=== PATIENT | male | born 1950 | race Caucasian/White ===

== ENCOUNTER 2022-01-05 10:02 | Observation (INO) | payer MEDICARE, SELFPAY ==
[2022-01-05] VITALS (9 sets, daily range): BP systolic 125–185; BP diastolic 81–97; PULSE 56–90; RESP 16–18; TEMP 36.5–36.9; O2SAT 93–100; BMI 23.2
--- NOTE | ~2022-01-05 | XR_ITS ---
EXAMINATION: XR chest 1V portable DATE: 01/05/2022 10:30 INDICATION: Dizziness. Syncope. TECHNIQUE: A single frontal view of the chest was obtained. COMPARISON: None. FINDINGS: The chest demonstrates clear lungs without pneumonia, pleural effusion, or pneumothorax. Th e heart size is normal. IMPRESSION: 1. No acute cardiopulmonary disease. Reviewed, dictated and finalized at location A. LY CENTERED SPECIALIST
--- NOTE | 2022-01-05 10:06 | ECG_ITS ---
Measurements Intervals [place] Rate: 54 P: 33 [place]: 162 QRS: -10 QRSD: 98 T: -21 QT: 422 QTc: 401 Interpretive Statements SINUS BRADYCARDIA LEFT VENTRICULAR HYPERTROPHY AND ST-T CHANGE MINIMAL Q WAVES- HIGH LATERAL LEADS BORDERLINE ST-T WAVE ABNORMALITY- INFERIOR LEADS BORDERLINE ECG Electronically Signed On 01-05-2022 15:13:45 P[employer]ICS PATTERNMAKER by Tony Correa D.O.
[2022-01-05 10:24] LABS: Basophils Absolute Auto 0.1 K/mm3 (0.0-0.1); Basophils Percent Auto 0.7 % (0.2-1.2); Eosinophils Absolute Auto 0.2 K/mm3 (0-0.3); Eosinophils Percent Auto 2.2 % (0-4.4); Hemoglobin 13.1 g/dL (14.0-18.0); Immature Granulocyte Absolute 0.04 K/mm3 (0.00-0.031); Immature Granulocyte Percent A 0.4 % (0-0.5); Lymphocytes Absolute Auto 3.05 K/mm3 (0.9-3.2); Lymphocytes Percent Auto 33.4 % (18.3-44.2); Mean Corpuscular HGB Conc 33.6 g/dl (32-36); Mean Corpuscular Hemoglobin 32.1 pg (26-34); Mean Corpuscular Volume 95.6 fl (80-100); Mean Platelet Volume 10.4 fl (7.4-10.4); Monocytes Percent Auto 10.5 % (2.6-8.5); Neutrophils Absolute Auto 4.8 K/mm3 (1.3-6.7); Neutrophils Percent Auto 52.8 % (45.5-73.1); Platelet Count Result 217 k/mm3 (150-375); Red Blood Count 4.08 M/mm3 (4.6-6.20); Red Cell Distribution Width 13.5 % (11.5-14.5); White Blood Count 9.1 K/mm3 (4.5-10.0)
--- NOTE | 2022-01-05 10:26 | ED.SYNCOPE ---
HPI - Syncope General Chief Complaint: Syncope Stated Complaint: syncopal, toothache Time Seen by Provider: 01/05/22 10:12 Source: patient, family and EMS Mode of arrival: EMS Limitations: no limitations History of Present Illness HPI narrative: Patient 71 years old white male brought to the emergency room by ambulance from discharge with his because of syncope. Patient was sitting in the bahai and started feeling bad, hot then blacked out for few minutes. Patient did not fall, nobody put him flat on the ground, was sitting all the time. Patient denies any headache, chest pain, shortness of breath, palpitation prior to syncope. Currently patient feeling much better except dry mouth. History of diabetes, hypertension, hyperlipidemia, heart attack 2 stent 2002 [facility], patient does not smoke or drink or uses drugs, currently patient on aspirin. Patient is fully vaccinated for COVID-19. Patient is full code. Patient been doing deep breathing exercises lately because of history of anxiety and panic attacks Related Data Home Medications Medication Instructions Recorded Confirmed glipizide 5 mg PO BID 01/05/22 01/05/22 losartan 100 mg PO DAILY 01/05/22 01/05/22 metformin 1,000 mg PO BID 01/05/22 01/05/22 simvastatin 10 mg PO DAILY 01/05/22 01/05/22 Allergies Allergy/AdvReac Type Severity Reaction Status Date / Time No Known Allergies Allergy Unknown Verified 08/30/03 08:41 Review of Systems Review of Systems: CONSTITUTIONAL: Denies fever, chills, or sweats. EYES: Denies visual changes, redness, or discharge. ENT: Denies rhinorrhea, congestion, sore throat, or otalgia. CARDIOVASCULAR: Denies chest pain, palpitations, or edema. RESPIRATORY: Denies cough or dyspnea. GASTROINTESTINAL: Denies abdominal pain, nausea, vomiting, or diarrhea. GENITOURINARY: Denies dysuria or hematuria. SKIN: Denies rash or itching. MUSCULOSKELETAL: Denies back pain, joint pain, or myalgia. NEUROLOGIC: Denies headache, numbness, or weakness. PSYCHIATRIC: Denies anxiety or depression. Exam Narrative: General appearance: Well-developed, well-nourished, hyperventilation, looks anxious does not look in pain Skin: Normal color Head: Normocephalic, nontraumatic Eyes: Clear conjunctiva ENT: Oropharynx normal, ears normal, nose normal, oral exam showed no sign of dental infection or dental caries Neck: Supple, nontender Chest and respiratory: Airway patent, no respiratory distress, no accessory muscle use Heart: Regular rate/rhythm Abdomen: Soft, nontender, no organomegaly, quiet bowel sounds Vascular: Normal peripheral pulses, normal capillary refill. Musculoskeletal: Normal range of motion, nontender back Neurologic: Alert and oriented ?3, MANAGER BENCH is normal as tested, no gross motor deficit Course Course Emergency Course: Improving Patient came to the emergency room from [place] with syncope. On arrival to the emergency room was hyperventilating, complaining of dry mouth. Patient symptoms resolved after Ativan and Zofran IV. Currently patient is asymptomatic, feeling much better. Work-up showed respiratory alkalosis which high likely secondary to hyperventilation syndrome. Patient had history of anxiety/depression and been doing deep breathing technique lately. Patient denying any stress or anxiety on arrival to the emergency room. Patient been complaining of right upper dental pain with chewing and biting for the last few days. No pain as long as he is not chewing or biting. Physical exam showed no findings for infection or abscess formation. Vital Signs Vital signs: Vital Signs Temperature 36.9 C 01/05/22 09:59 Pulse Rate 58 L 01/05/22 09:59 Respirato
[2022-01-05 10:33] LABS: Alanine Aminotransferase 39 U/L (4-50); Albumin Level 4.7 g/dL (3.5-5.1); Alkaline Phosphatase 56 U/L (38-126); Anion Gap 14 mmol/L (8-16); Aspartate Amino Transferase 34 U/L (17-59); Bilirubin,Total 0.5 mg/dL (0.2-1.3); Blood Urea Nitrogen 14 mg/dL (9-20); Carbon Dioxide 20 mmol/L (22-30); Chloride 103 mmol/L (98-107); Estimated CRCL calculation 60 ml/min; Estimated Glomerular Filt Rate > 60; Glucose 186 mg/dL (65-110); Sodium 137 mmol/L (137-145)
[2022-01-05 10:46] LABS: Troponin I 0.016 ng/mL (0.000-0.034)
[2022-01-05] MEDS: LORazepam INJ (*CRX) 2 MG/ML VIAL 1 MG IV PUSH (10:51)
[2022-01-05] MEDS: ONDANSETRON INJ 4 MG/2 ML VIAL IV PUSH (10:51)
[2022-01-05 11:12] LABS: Alveolar/Arterial O2 Gradient 23.2 mmHg; Base Excess ABG -2.1 mEq/l (+/-2.0); Fractional Inspired Oxygen 21 %; HCO3 ABG 18.4 mEq/l (22.0-26.0); Oxygen Content ABG 18.4 %vol (16.0-22.0); Oxygen Saturation ABG 98.3 % (95.0-100.0); PO2 ABG 100.2 mmHg (80.0-100.0); PO2 FiO2 Ratio Arterial Blood 4.77 %; Total Hemoglobin 13.4 g/dL (12.0-18.0)
[2022-01-05 11:15] LABS: pH ABG 7.541 (7.350-7.450)
[2022-01-05 11:16] LABS: INR 1.1; Prothrombin Time 13.5 Seconds (11.1-14.7)
[2022-01-05 11:16] LABS: Device ROOM AIR; Modified Allen's Test Pass; Site Drawn LEFT RADIAL
[2022-01-05 11:17] LABS: Partial Thromboplastin Time 23.5 SECONDS (22.3-36.8)
[2022-01-05 11:19] LABS: D Dimer 0.44 ug/mL (<0.48)
--- NOTE | 2022-01-05 12:02 | PM.IMHP ---
H&P: HPI History of Present Illness Date/Time: 01/05/22 12:02 Chief Complaint: Fainting spell Narrative: This pleasant 71-year-old gentleman with known and well controlled type 2 diabetes, hypertension, and hyperlipidemia was in his usual state of health this morning. Over the last few days he has had a toothache in the right jaw that is interfered with food intake. He has been taking Tylenol Arthritis regularly to ease the pain. He took Tylenol Arthritis on the morning of admission. His fasting blood sugar was 111 by his home glucometer. He prepared eggs for breakfast. He tolerated them well. He and his got dressed and left for muslim. As he walked in to muslim and set down he remarked to his that he was feeling nauseated. He started to feel very warm and his noted that he was perspiring and staring ahead and not responding to her. She summoned some help and a couple of min broad wheelchair helped him into it and wheeled him out to the lobby. He remembers some of that not all of it, saying that he felt as if he was fading in and out. During nighttime he had no abnormal movements and no incontinence and no injury. Once in the lobby he vomited several times. None of it was bloody. It was mainly the eggs that he had eaten earlier. He remembers 1 of the min telling him to ?stay with me ?as he felt very tired and wanted of lean his head forward and just go to sleep. EMS was summoned and they checked his blood sugar at the 160s. He was brought to the emergency department where his blood sugar was in the 180s. He because most of the transport to the emergency department and by the time he was in his margins room cot he was feeling almost at his baseline except for being very tired. He denied any postictal symptoms otherwise. He denied chest pain, shortness of breath, palpitations, edema, change in urine or stool, rash, abnormal bleeding, weakness, or numbness. He denied any visual changes other than the tunnel vision during his spell. When he was 33 years old he had a syncopal episode but his primary doctor told him he had hypokalemia and when that was corrected he experienced no further episodes. He was taking medications at the time. Review of Systems Review of Systems: All systems reviewed & are unremarkable except as noted in HPI and below PMFSH Past Medical History Medical History (Updated 01/05/22 @ 14:22 by Demetrio Garcia MD) Aortic valve stenosis, acquired Coronary artery disease Essential hypertension Hyperlipidemia Uncomplicated type 2 diabetes mellitus Surgical History Surgical History (Updated 01/05/22 @ 14:03 by Demetrio Garcia MD) Stented coronary artery Family History Family History (Updated 01/05/22 @ 14:07 by Demetrio Garcia MD) Father COPD (chronic obstructive pulmonary disease) Mother No problems noted. Social History Social History (Updated 01/05/22 @ 14:10 by Demetrio Garcia MD) Social History: Retired stock checkerer. Resides with (POA). Desires to be full code. Smoking packs per day: 2 Smoking cigarettes per day: 40.0 Years smoked: 25 Smoking pack-years: 50.00 Smoking status: Former smoker Tobacco type: cigarettes Smoking end date: 05/23/02 Alcohol intake: former Substance use: never Living arrangements: with family Additional living arrangements comments: Resides with spouse. Gender identity (if verbalized by the patient): Male Meds Home Medications and Allergies Home Medications Medication Instructions Recorded Confirmed Type glipizide 5 mg PO BID 01/05/22 01/05/22 History losartan 100 mg PO DAILY 01/05/22 01/05/22 History metformin 1,000 mg PO BID 01/05/22 01/05/22 History simvastatin 10 mg PO DAILY 01/05/22 01/05/22 History Allergies Allergy/AdvReac Type Severity Reaction Status Date / Time nitroglycerin AdvReac Hypotension Verified 01/05/22 11:58 Vital Signs Vital Signs - 24 hr
[2022-01-05 12:37] LABS: SARS-CoV-2 RNA PCR Negative
--- NOTE | 2022-01-05 12:45 | PC.NURSE ---
Pt is agreeable to admission. Hospitalist at bedside.
[2022-01-05 13:54] LABS: Troponin I < 0.012 ng/mL (0.000-0.034)
--- NOTE | 2022-01-05 15:10 | PC.NURSE ---
This patient, Herbie De Guzman, was admitted to 3 [facility] Surg Room 327-01. Patient/family oriented to hospital policies and general routines including ID bracelet, bed and alarms, visiting hours, pain management, procedures, bathroom and other care routines, personal items, smoking policy, room service/diet, and visiting hours. Report received from [facility]. Information on how to activate the Rapid Response Team has been discussed. Patient/Family are encouraged to report perceived risks to care and to ask questions if they do not understand what they are told or what they should do.
[2022-01-05 16:32] LABS: Troponin I < 0.012 ng/mL (0.000-0.034)
[2022-01-05 17:00] LABS: Glucose Point of Care 126 mg/dl (65-105)
[2022-01-05] MEDS: glipiZIDE 5 MG TABLET PO (17:28)
[2022-01-05] MEDS: metFORMIN HCL 500 MG TABLET 1000 MG PO (17:28)
[2022-01-05] MEDS: ENOXAPARIN 40 MG/0.4 ML SYRINGE SUB-Q (17:28)
[2022-01-05] MEDS: SIMVASTATIN 10 MG TABLET PO (20:58)
[2022-01-06] VITALS: PULSE 90
--- NOTE | 2022-01-06 | ECHO_ITS ---
Patient Info Name: Herbie De Guzman Age: 71 years : 1950 Gender: Male Ht: 73 in Wt: 178 lbs BSA: 2.04 m2 HR: 90 bpm BP: 161 / 91 mmHg Heart Rhythm: Sinus Rhythm Technical Quality: Fair Exam Date: 01/06/2022 9:16 AM Exam Location: [facility] Pulmonary Patient Status: Outpatient Admit Date: 01/05/2022 Staff Ordering Physician: Demetrio Garcia MD Java Developer With Security Clearance: Harmony Moore RDCS Attending Provider: Demetrio Garcia MD Referring Physician: Radha HOU; Exam Type: CA echo doppler color flow Study Info Indications - aortic stenosis, syncope Complete two-dimensional, color flow and Doppler transthoracic echocardiogram is performed. Summary 1. Complete two-dimensional, color flow and Doppler transthoracic echocardiogram is performed. 2. There is mild concentric increased left ventricular wall thickness. 3. Left ventricular systolic function is normal, estimated at 60-65%. 4. The left ventricular diastolic function is grade I diastolic dysfunction. 5. Left atrial chamber dimension is mildly enlarged. 6. There is mild aortic valve stenosis with a peak velocity of 300 cm/s, mean gradient of 19 mmHg, and aortic valve area of 1.3 cm2. 7. There is trace mitral valve regurgitation. Left Ventricle Left ventricular chamber dimension is normal. Left ventricular systolic function is normal, estimated at 60-65%. There is mild concentric increased left ventricular wall thickness. The left ventricular diastolic function is grade I diastolic dysfunction. Right Ventricle Right ventricular chamber dimension is normal. Left Atria Left atrial chamber dimension is mildly enlarged. Right Atria Right atrial chamber dimension is normal. Aortic Valve The aortic valve is trileaflet. There is moderate aortic valve sclerosis. There is mild aortic valve stenosis with a peak velocity of 300 cm/s, mean gradient of 19 mmHg, and aortic valve area of 1.3 cm2. Pulmonic Valve The pulmonic valve is not well visualized. Mitral Valve The mitral valve has normal leaflets. There is trace mitral valve regurgitation. Tricuspid Valve The tricuspid valve leaflets are normal. Pericardium/Pleural The pericardium appears normal. Aorta The aortic root size at the sinus of Valsalva is normal. Left Ventricular Outflow Tract Name Value Normal LVOT 2D LVOT Diameter 2.0 cm LVOT Doppler LVOT Peak Gradient 6 mmHg LVOT Mean Gradient 3 mmHg LVOT VTI 22 cm LVOT VTI/AV VTI Ratio 0.4 LVOT Stroke Volume 73 ml LVOT CO 5.5 l/min LVOT CI 2.7 l/min/m2 Pulmonic Valve Name Value Normal RVOT Doppler RVOT Peak Gradient 5 mmHg PV Do
[2022-01-06 04:00] VITALS: PULSE 90
[2022-01-06 06:00] VITALS: BP 161/91; PULSE 90; RESP 16; TEMP 36.4; O2SAT 96
--- NOTE | 2022-01-06 06:00 | ECG_ITS ---
Measurements Intervals [place] Rate: 68 P: 40 AR: 153 QRS: -13 QRSD: 99 T: -1 QT: 379 QTc: 404 Interpretive Statements SINUS RHYTHM LEFT VENTRICULAR HYPERTROPHY AND ST-T CHANGE BORDERLINE ST-T WAVE ABNORMALITY- INF/LAT LEADS BORDERLINE ECG Electronically Signed On 01-06-2022 13:36:50 BUS BOY by Tony Correa D.O.
[2022-01-06] MEDS: glipiZIDE 5 MG TABLET PO (06:17)
[2022-01-06 07:29] LABS: Hematocrit 39.6 % (42.0-52.0); Hemoglobin 13.2 g/dL (14.0-18.0); Immature Reticulocyte Fraction 11.1 % (3.0-15.9); Mean Corpuscular HGB Conc 33.3 g/dl (32-36); Mean Corpuscular Hemoglobin 32.1 pg (26-34); Mean Corpuscular Volume 96.4 fl (80-100); Mean Platelet Volume 10.6 fl (7.4-10.4); Platelet Count Result 207 k/mm3 (150-375); Red Blood Count 4.11 M/mm3 (4.6-6.20); Red Cell Distribution Width 13.7 % (11.5-14.5); Reticulocyte Hemoglobin Conten 37.7 pg (28.2-35.7); Reticulocyte Percent 1.21 % (0.7-4.3); Reticulocytes Absolute 0.05 B/L (32.2-175.7); White Blood Count 9.3 K/mm3 (4.5-10.0)
[2022-01-06 07:39] LABS: Anion Gap 11 mmol/L (8-16); Blood Urea Nitrogen 18 mg/dL (9-20); Calcium 9.6 mg/dL (8.4-10.2); Carbon Dioxide 27 mmol/L (22-30); Chloride 98 mmol/L (98-107); Estimated CRCL calculation 66 ml/min; Estimated Glomerular Filt Rate > 60; Glucose 152 mg/dL (65-110); Potassium 4.5 mmol/L (3.4-5.0); Sodium 136 mmol/L (137-145)
[2022-01-06 07:57] LABS: Iron 91 ug/dL (49-181)
[2022-01-06 08:00] VITALS: BP 157/89; PULSE 69; PULSE 79; RESP 20; TEMP 37.2; O2SAT 96
[2022-01-06] MEDS: metFORMIN HCL 500 MG TABLET 1000 MG PO (08:06)
[2022-01-06] MEDS: LOSARTAN POTASSIUM 100 MG TABLET PO (08:06)
[2022-01-06] MEDS: ASPIRIN 81 MG CHEWABLE TABLET PO (08:06)
[2022-01-06 08:08] LABS: Percent Iron Saturation 23 % (20-50)
[2022-01-06 08:39] LABS: Glucose Point of Care 143 mg/dl (65-105)
[2022-01-06 08:46] LABS: Folic Acid 16.5 ng/mL (2.76->20); Vitamin B12 > 1000.0 pg/mL (239-931)
[2022-01-06 11:26] LABS: Glucose Point of Care 139 mg/dl (65-105)
[2022-01-06 12:00] VITALS: BP 128/74; PULSE 76; PULSE 85; RESP 20; TEMP 36.7; O2SAT 98
--- NOTE | 2022-01-06 13:42 | PM.DS ---
DS: Admitting Diagnosis Discharge Date 01/06/22 Admitting Diagnosis Syncope DS: Discharge Diagnosis Discharge Diagnosis (1) Syncope: Qualifiers: Syncope type: unspecified Qualified Code(s): R55 - Syncope and collapse Code(s): R55 - Syncope and collapse Status: Acute (2) Aortic valve stenosis, acquired: Code(s): I35.0 - Nonrheumatic aortic (valve) stenosis Status: Acute (3) Uncomplicated type 2 diabetes mellitus: Qualifiers: Diabetes mellitus termite helper insulin use: without detention use Qualified Code(s): E11.9 - Type 2 diabetes mellitus without complications Code(s): E11.9 - Type 2 diabetes mellitus without complications Status: Acute (4) Coronary artery disease: Qualifiers: Coronary Disease-Associated Artery/Lesion type: [place] artery [place] vs. transplanted heart: [place] heart Associated angina: without angina Qualified Code(s): I25.10 - Atherosclerotic heart disease of [place] coronary artery without angina pectoris Code(s): I25.10 - Atherosclerotic heart disease of [place] coronary artery without angina pectoris Status: Acute (5) Essential hypertension: Code(s): I10 - Essential (primary) hypertension Status: Acute (6) Acute respiratory alkalosis: Code(s): E87.3 - Alkalosis Status: Acute (7) Pain, dental: Code(s): K08.89 - Other specified disorders of teeth and supporting structures Status: Acute (8) Anemia: Qualifiers: Anemia type: unspecified type Qualified Code(s): D64.9 - Anemia, unspecified Code(s): D64.9 - Anemia, unspecified Status: Acute DS: Summary Hospital Course Reason for hospitalization: 71-year-old gentleman with known and well controlled type 2 diabetes, hypertension, and hyperlipidemia here for syncopal episode. Please see H&P for details Hospital Course: Over the last few days he has had a toothache in the right jaw that is interfered with food intake. he states to me while standing and singing in yarsanism, he had pain in his jaw and felt weak so he sat down at which point he had a syncopal episode. No trauma or fall. No incontinence and no injury. EMS was summoned and they checked his blood sugar at the 160s. He was brought to the ED. EKG showed sinus bradycardia rate of 54, borderline ST T wave changes and minimal Q-waves in the high lateral leads. He also had LVH with ST T wave changes. Repeat EKG shows similar findings. Patient was given Zofran and Ativan and admitted for further care. Mild anemia noted otherwise CBC was unremarkable. D-dimer was normal. ABG showed 7.54/22/100 on room air. It was suspected the patient was hyperventilating and he has a history of this. Troponin was negative x3. B12, folate and TSH were normal. Iron studies are normal. Bicarb was slightly low at 20 but on repeat was normal. The LFTs normal. Electrolytes otherwise are normal. COVID test was negative. Chest x-ray was clear. Patient was admitted and placed on telemetry. No significant dysrhythmias noted. Echocardiogram shows normal LV systolic function with EF of 60-65% and grade 1 diastolic dysfunction. He has mild aortic valve stenosis. No fevers. Blood pressure was elevated at times but improved with resuming his home medications. Patient had no further symptoms. He continued to have jaw pain and has a dentist appointment later this evening. 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 Patient feels comfortable with discharge. Patient overall did well he was discharged home with plans to follow-up with his dentist later this evening. Status at Discharge Cognitive/behavioral status at discharge: Stable Time Spent with Patient Time attestation: Total time spent providing and/or coordinating discharge services: 35 minutes Time spent: Greater than 30 minutes Exam Narrative: AF 98.1 128/74 85 20 98% ra Gen - NARD Chest
== END 2022-01-06 14:27 | disposition home or self-care (01) ==
LOC: ANHED 11:42 → ANH3MEDSUR 01-06 09:06
PROVIDERS: Admitting Provider Internal Medicine; Emergency Provider Emergency Medicine; Visit Provider Internal Medicine
DX: R55 Syncope and collapse (principal); I35.0 Nonrheumatic aortic (valve) stenosis; E11.9 Type 2 diabetes mellitus without complications; R06.4 Hyperventilation; E87.3 Alkalosis; K08.89 Other specified disorders of teeth and supporting structures; I10 Essential (primary) hypertension; E78.5 Hyperlipidemia, unspecified; D64.9 Anemia, unspecified; I25.10 Atherosclerotic heart disease of native coronary artery without angina pectoris; Z79.84 Long term (current) use of oral hypoglycemic drugs; Z20.822 Contact with and (suspected) exposure to COVID-19; Z87.891 Personal history of nicotine dependence
CPT/HCPCS: 36415; 36600; 71045; 80048; 80053; 82607; 82746; 82805; 82948; 83540; 83550; 84443; 84484; 85025; 85027; 85046; 85380; 85610; 85730; 93005; 93306; 96372; 96374; 96375; 99285; A9270; C9803; G0378; J0131; J1650; J2060; J2405; U0003; U0005